=== PATIENT | male | born 1930 | race Caucasian/White ===

== ENCOUNTER 2019-01-03 14:32 | Emergency (ER) | payer OTHER ==
--- NOTE | 2019-01-03 14:35 | PDOC ---
History of Present Illness - General Chief Complaint: Injury Stated Complaint: LEFT KNEE PAIN Time Seen by Provider: 01/03/19 14:34 History Source: Patient Exam Limitations: No Limitations - History of Present Illness Initial Comments: 01/03/19 15:13 Padilla Diego is a 88yM w PMHx CHF, diabetic neuropathy, L4-5 spinal stenosis , valve replacement presenting with fall. At 10am today, pt was standing up holding guard rail in bathroom, felt R leg buckle and fell backwards against home health aid. Hit both anterior knees against wall. No LOC, head trauma. Pt denies any pain, normal LE sensation bilaterally, no problems urinating after incident. Pt not ambulating past 4 weeks due to progressively worsening leg weakness attributed to multiple cardiac and neurological health issues. Denies fever, headache, SOB, chest/AB pain, urinary/bowel movement changes. Past History - Past Medical History Allergies/Adverse Reactions: Allergies Allergy/AdvReac Type Severity Reaction Status Date / Time clindamycin Allergy Verified 01/03/19 14:35 Penicillins Allergy Verified 01/03/19 14:35 shellfish derived Allergy Verified 01/03/19 14:35 Sulfa (Sulfonamide Allergy Verified 01/03/19 14:35 Antibiotics) CONTRAST DYE Allergy Uncoded 01/03/19 14:35 Home Medications: Ambulatory Orders Alfuzosin HCl [Alfuzosin HCl ER] 10 mg PO DAILY 01/03/19 Apixaban [Eliquis] 5 mg PO BID 01/03/19 Aspirin [Aspirin EC] 81 mg PO AM 01/03/19 Bumetanide [Bumex -] 4 mg PO AM 01/03/19 Donepezil HCl [Aricept] 10 mg PO HS 01/03/19 Loratadine [Claritin] 10 mg PO AM 01/03/19 Memantine HCl [Namenda -] 10 mg PO BID 01/03/19 Metoprolol Succinate [Toprol Xl] 100 mg PO AM 01/03/19 Multivitamin [Multiple Vitamins] 1 each PO AM 01/03/19 Simvastatin 10 mg PO HS 01/03/19 Sitagliptin Phosphate [Januvia] 50 mg PO AM 01/03/19 Review of Systems - Review of Systems Constitutional: Yes: Weakness (leg). No: Chills, Fever HEENTM: No: Eye Pain, Nose Pain, Throat Pain, Mouth Pain Respiratory: No: Cough, Shortness of Breath Cardiac (ROS): No: Chest Pain, Palpitations, Chest Tightness ABD/GI: No: Abdominal Distended, Constipated, Diarrhea, Nausea, Vomiting : No: Burning, Dysuria, Discharge, Frequency, Flank Pain, Hematuria Musculoskeletal: No: Back Pain, Joint Pain, Joint Swelling, Muscle Pain Integumentary: No: Bruising, Change in Color, Dryness, Erythema Neurological: No: Headache, Numbness, Seizure, Tingling, Tremors Psychiatric: No: Anxiety, Depression, Stressors Endocrine: No: Excessive Sweating, Flushing, Intolerance to Cold, Intolerance to Heat Hematologic/Lymphatic: No: Anemia, Blood Clots, Easy Bleeding *Physical Exam - Physical Exam General Appearance: Yes: Nourished, Appropriately Dressed. No: Apparent Distress HEENT: positive: EOMI, ANDREW, Normal Voice, Lesions. negative: Scleral Icterus ( R), Scleral Icterus (L), Nasal Congestion, Rhinorrhea Respiratory/Chest: positive: Lungs Clear, Normal Breath Sounds. negative: Chest Tender, Respiratory Distress, Crackles, Rales, Rhonchi, Stridor, Wheezing Cardiovascular: positive: Regular Rhythm, S1, S2, Bradycardia. negative: Murmur Vascular Pulses: Dorsalis-Pedis (R): 3+, Doralis-Pedis (L): 3+ Gastrointestinal/Abdominal: positive: Normal Bowel Sounds, Flat, Soft. negative : Tender, Organomegaly, Distended, Guarding, Rebound Musculoskeletal: negative: CVA Tenderness (R), CVA Tenderness (L) Extremity: positive: Normal Capillary Refill, Swelling (+2 pitting edema to knees bilaterally), Other (multiple 1cm superifical abrasions over anterior knees bilaterally) Integumentary: positive: Normal Color. negative: Rash, Swelling, Ecchymosis Neurologic: positive: screen cleaner II-XII NML intact, Fully Oriented, Alert, Normal Mood/ Affect, Normal Response, Responsive. negative: Motor Strength 5/5 (3/5 hip flexion bilaterally, 5/5 dorsi/plantarflexion bilaterally), Numbness, Sensory Deficit (normal sensation BLE), Confused, Disoriented ED Treatment Course - LABORATORY CBC & Chemistry Diagram: 01/03/19 16:05 01/03/19 16:05 Medical Decision Making - Medical Decision Making 01/03/19 15:51 CBC CMP (neg) trop UA Ucx - all normal EKG CXR L/R hip and pelvis, bilateral knee XR no fx/dislocation EKG shows a fib w competing pacemaker, HR 71, QTc 506 CXR shows R lung effusions CBC CMP UA normal, neg trop Padilla Diego is a 88yM w PMHx CHF, diabetic neuropathy, L4-5 spinal stenosis , valve replacement presenting with fall. L/R hip and pelvis, bilateral knee XR does not show fracture or dislocation. CBC, CMP normal, no UTI. No evidence of ACS w negative trop, no chest pain/SOB. Talked to sister who notes that pt has good home health care. D/c w PCP f/u and [facility] instructions. Discharge - Discharge Information Problems reviewed: Yes Clinical Impression/Diagnosis: Fall Qualifiers: Encounter type: initial encounter Qualified Code(s): W19.XXXA - Unspecified fall, initial encounter Condition: Good Disposition: HOME - Admission No - Follow up/Referral - Patient Discharge Instructions Patient Printed Discharge Instructions: DI for Knee Pain Additional Instructions: You were seen for knee injury after a fall. Your labs and imaging do not show anything concerning. Please make an appointment to see your primary care doctor regarding your leg weakness and swelling. Come back to the ED if you fall down again, cannot move your legs, or lose sensation in your legs. - Post Discharge Activity
[2019-01-03 14:43] VITALS: TEMP 97.7; BMI 33.3
[2019-01-03 16:24] LABS: BASO % 0.6 % (0-2.0); EOS % 0.6 % (0-4.5); HEMATOCRIT 44.6 % (35.4-49); LYMPH % 13.1 % (8-40); MCH 32.2 pg (25.7-33.7); MCHC 33.6 g/dl (32.0-35.9); MEAN CELL VOLUME 95.8 fl (80-96); MEAN PLT VOLUME 7.9 fl (7.5-11.1); NEUT % 76.7 % (42.8-82.8); PLATELET COUNT 155 K/MM3 (134-434); RBC 4.66 M/mm3 (4.00-5.60); RDW 14.1 % (11.9-15.9); WHITE BLOOD COUNT 8.4 K/mm3 (4.0-10.8)
--- NOTE | 2019-01-03 16:36 | PDOC ---
Attending Attestation - Resident Resident Name: Luis Carlin - ED Attending Attestation I have performed the following: I have examined & evaluated the patient, The case was reviewed & discussed with the resident, I agree w/resident's findings & plan, Exceptions are as noted - HPI HPI: 01/03/19 17:02 88yM w PMHx CHF, diabetic neuropathy, L4-5 spinal stenosis, valve replacement presenting with fall. Patient has almost 24 7 home health aide care secondary to progressively worsening weakness he is being followed closely by his primary care doctor and received PT for this. While standing patient's knee buckled fell to the ground bumped his knees complaining of mild knee and hip pain otherwise he is at his baseline mental status there was no head trauma or head injury - Physicial Exam PE: 01/03/19 17:29 Vitals: Triage Vital signs reviewed General Appearance: no acute distress, well nourished well developed, Head: Atraumatic, Neck: Supple;No Nucal rigidity Chest Wall: Nontender Cardiac: Regular rate and rhythym, no murmurs, no rubs, no gallops, Lungs: Mild crackles at the bases, Abdomen: Soft, non distended, normal bowel sounds, non tender to palpation Extremities: Full range of motion to all extremities, no cyanosis, clubbing, or edema Skin: Warm and dry, no rashes or lesions, no rash, no petechiae Neuro: Strength intact to all extremities, Sensation intact to all extremities Psych: normal mood, normal affect - Medical Decision Making 01/03/19 17:34 88 years old with very mechanical fall secondary to chronic weakness. No acute changes recently Labs within normal limits x-rays demonstrate no acute fracture dislocation patient had mild congestion in his chest x-ray which when discussed with daughter is chronic. Does not want to make any changes to his diuretics at home we will discuss with her PCP this week Findings, need for follow-up and strict return instructions discussed with patient and family. Heart Score/ECG Review - ECG Impressions Comment:: 01/03/19 17:34 EKG performed at 1709 demonstrates A. fib left anterior fascicular block no ST elevations
[2019-01-03 16:40] LABS: ALBUMIN 3.6 g/dl (3.4-5.0); BILIRUBIN,TOTAL 1.4 mg/dl (0.2-1); CREATININE 1.2 mg/dl (0.55-1.3); POTASSIUM 3.9 mmol/L (3.5-5.1); TOT PROT 6.4 g/dl (6.4-8.2)
[2019-01-03 17:57] VITALS: BP 143/68; PULSE 58
--- NOTE | 2019-01-04 10:26 | EKG ---
Test Reason : Blood Pressure : / mmHG Vent. Rate : 071 BPM Atrial Rate : 067 BPM P-R Int : 000 ms QRS Dur : 122 ms QT Int : 466 ms P-R-T Axes : 000 -53 -17 degrees QTc Int : 506 ms ATRIAL FIBRILLATION WITH A COMPETING JUNCTIONAL PACEMAKER WITH PREMATURE VENTRICULAR OR ABERRANTLY CONDUCTED COMPLEXES LEFT ANTERIOR FASCICULAR BLOCK NONSPECIFIC ST AND T WAVE ABNORMALITY ABNORMAL ECG NO PREVIOUS ECGS AVAILABLE Confirmed by KARLA VUONG, JAJA ([id number]) on 01/04/2019 10:25:44 AM Referred By: DR DICKINSON Confirmed By:JAJA ACOSTA MD
== END 2019-01-03 17:45 | disposition home or self-care (01) ==
LOC: FER 14:32
DX: M25.562 Pain in left knee (principal); W18.39XA Other fall on same level, initial encounter; Y93.89 Activity, other specified; Y92.89 Other specified places as the place of occurrence of the external cause; I50.9 Heart failure, unspecified; E11.40 Type 2 diabetes mellitus with diabetic neuropathy, unspecified; M48.00 Spinal stenosis, site unspecified; Z79.01 Long term (current) use of anticoagulants; Z95.2 Presence of prosthetic heart valve; Z88.0 Allergy status to penicillin; Z91.013 Allergy to seafood; Z88.8 Allergy status to other drugs, medicaments and biological substances
CPT/HCPCS: 36415; 71045-TC-FY; 73523-TC-FY; 73562-TC-LT-FY; 73562-TC-RT-FY; 80053; 81003; 81015; 83880; 84484; 85025; 87086; 93005; 99283-25